=== PATIENT | female | born 1980 | race Caucasian/White ===

== ENCOUNTER → 2016-09-10 | Outpatient (CLI) | payer OTHER ==
[~2016-09-10] MED LIST: ALBU0.08 NEB; CELE40TA PO; EPIP0.3I IM; IPRAAER INH; LEVO50TA4 PO; MONT10TA2 PO; NEUR600T PO; SYMB160A INH; VENTAER INH; VITA2000 PO; naltrexone PO
[2016-09-10 08:28] LABS: BICARBONATE 29.9 MEQ/L (21.0-32.0); POTASSIUM 3.9 MEQ/L (3.5-5.1)
[2016-09-10 08:38] LABS: FREE T3 2.47 PG/ML (2.18-3.98); FREE T4 0.85 NG/DL (0.76-1.46)
== END ==
LOC: CLAB 07:27
PROVIDERS: ATTEND Family Medicine
DX: R79.89 Other specified abnormal findings of blood chemistry (principal); E55.9 Vitamin D deficiency, unspecified
CPT/HCPCS: 36415; 80048; 82306; 84439; 84443; 84481